=== PATIENT | female | born 1985 | race Caucasian/White ===

== ENCOUNTER 2021-12-19 11:32 | Emergency (ER) | payer OTHER, SELFPAY ==
--- NOTE | ~2021-12-19 | XR_ITS ---
EXAMINATION: XR ankle LT min 3V DATE: 12/19/2021 11:53 INDICATION: Left ankle inversion injury. Lateral ankle swelling. TECHNIQUE: 4 views of left ankle were obtained. COMPARISON: None. FINDINGS: Bone alignment is normal. No fracture. Joint spaces are well maintained. There is an enthes ophyte at plantar aspect of calcaneal tuberosity. There is lateral ankle soft tissue swelling. IMPRESSION: 1. No fracture. Reviewed, dictated and finalized at location A. IMPRESSION: 1. No fracture.
[2021-12-19 11:43] VITALS: BP 145/86; PULSE 86; RESP 14; TEMP 36.7; O2SAT 100
[2021-12-19 11:48] VITALS: BP 145/86; PULSE 86; RESP 14; TEMP 36.7; O2SAT 100
--- NOTE | 2021-12-19 11:55 | ED.LOWEXIN ---
HPI - Extremity Injury (Lower) General Chief Complaint: Extremity Injury, Lower Stated Complaint: Left Ankle Injury Time Seen by Provider: 12/19/21 11:56 Source: patient, RN notes reviewed and old records reviewed Mode of arrival: ambulatory Limitations: no limitations History of Present Illness HPI Narrative: 36 years old female who was walking outside and her ankle gave out and she twisted her left ankle on Friday. Patient has pain to the lateral left ankle with bruising along her lateral foot with some tenderness the lateral ankle and anterior to ankle bone. Patient has no obvious deformity with no tingling or numbness to left foot with brisk capillary refill of left toes. complaint: ankle injury Onset (ago): day(s) (3) Type of Injury: other (twisted) Place: street/outdoors Related Data Home Medications Medication Instructions Recorded Confirmed No Home Medications 12/19/21 12/19/21 Allergies Allergy/AdvReac Type Severity Reaction Status Date / Time No Known Allergies Allergy Verified 12/19/21 11:48 Review of Systems Review of Systems: CONSTITUTIONAL: Denies fever, chills, or sweats. EYES: Denies visual changes, redness, or discharge. ENT: Denies rhinorrhea, congestion, sore throat, or otalgia. CARDIOVASCULAR: Denies chest pain, palpitations, or edema. RESPIRATORY: Denies cough or dyspnea. GASTROINTESTINAL: Denies abdominal pain, nausea, vomiting, or diarrhea. GENITOURINARY: Denies dysuria or hematuria. SKIN: Denies rash or itching. Bruising along the left lateral foot MUSCULOSKELETAL: Denies back pain, positive lateral left ankle joint pain, or myalgia. NEUROLOGIC: Denies headache, numbness, or weakness. PSYCHIATRIC: Denies anxiety or depression. All systems reviewed & are unremarkable except as noted in HPI and below PMFSH Past Medical History Medical History (Updated 12/19/21 @ 12:25 by Josie Burleson NP) Fracture of arm fracture age 11 surgery to set Fracture of right great toe Family History Family History (Updated 05/03/16 @ 23:19 by DOCTOR UNKNOWN) Father Family history of diabetes mellitus in first degree relative Social History Social History (Updated 12/19/21 @ 12:22 by Josie Burleson NP) Smoking status: Never smoker Tobacco type: cigarettes Alcohol intake: current Substance use type: does not use Living arrangements: with family Gender identity (if verbalized by the patient): Female Comments At time of signature, agree with nursing past medical, surgical, social and family history. There is no relevant family history pertinent to the presenting complaint Exam Narrative: GENERAL: Well-appearing, well-nourished, and in no acute distress. HEAD: Normocephalic, atraumatic. EYES: PERRLA and EOMI. ENT: Nares clear, no rhinorrhea or epistaxis. Mucous membranes moist. NECK: Supple. no lymphadenopathy CHEST: Clear to auscultation. No respiratory distress.SAO2 100% on room air HEART: Regular rate and rhythm. No murmur heard. Normal peripheral pulses. ABDOMEN: Soft, nontender, nondistended, normal active bowel sounds. EXTREMITIES: Normal range of motion. No edema with exception to left lateral ankle with pain and to dorsal area anterior of ankle, circulation, sensation and mobility intact to left ankle. SKIN: Warm, dry, no rash. bruising lateral left foot NEURO: No focal deficits. Alert and oriented x3. Course Course Level of Care: Express Care Visit Vital Signs Vital signs: Vital Signs Temperature 36.7 C 12/19/21 11:43 Pulse Rate 86 12/19/21 11:43 Respiratory Rate 14 12/19/21 11:43 Blood Pressure 145/86 H 12/19/21 11:43 Pulse Oximetry 100 12/19/21 11:43 Temperature 36.7 C 12/19/21 11:48 Pulse Rate 86 12/19/21 11:48 Respiratory Rate 14 12/19/21 11:48 Blood Pressure 145/86 H 12/19/21 11:48 Pulse Oximetry 100 12/19/21 11:48 MDM - Extremity Injury (Lower) Differential Diagnosis Differential diagnosis: Likely ankle sprain
--- NOTE | 2021-12-19 12:03 | PC.NURSE ---
PT DECLINED ICE AND WHEELCHAIR FOR COMFORT
== END 2021-12-19 12:15 | disposition home or self-care (01) ==
PROVIDERS: Emergency Provider Registered Nurse
DX: S93.402A Sprain of unspecified ligament of left ankle, initial encounter (principal); S96.912A Strain of unspecified muscle and tendon at ankle and foot level, left foot, initial encounter; X50.9XXA Other and unspecified overexertion or strenuous movements or postures, initial encounter
CPT/HCPCS: 73610; 99203; G0463

== ENCOUNTER 2022-01-18 09:32 | Emergency (ER) | payer OTHER, SELFPAY ==
--- NOTE | ~2022-01-18 | XR_ITS ---
EXAMINATION: XR ankle LT min 3V DATE: 01/18/2022 09:52 INDICATION: Left ankle inversion injury and pain and swelling. TECHNIQUE: 4 views of left ankle were obtained. COMPARISON: None. FINDINGS: Bone alignment is normal. No fracture. Joint spaces are well-maintained. There is an enthes ophyte at plantar aspect of calcaneal tuberosity. There is ankle soft tissue swelling, lateral worse than medial. IMPRESSION: 1. No fracture. Reviewed, dictated and finalized at location A. IMPRESSION: 1. No fracture.
[2022-01-18 09:40] VITALS: BP 166/101; PULSE 95; RESP 18; TEMP 36.5; O2SAT 100
--- NOTE | 2022-01-18 09:51 | PC.NURSE ---
PT DECLINED ICE FOR COMFORT AND USED HER PERSONAL WALKING BOOT TO AMBULATE TO RADIOLOGY AND PT ROOM
--- NOTE | 2022-01-18 10:46 | ED.LOWEXIN ---
HPI - Extremity Injury (Lower) General Chief Complaint: Extremity Injury, Lower Stated Complaint: Left Ankle Injury Time Seen by Provider: 01/18/22 10:48 Source: patient, RN notes reviewed and old records reviewed Mode of arrival: ambulatory Limitations: no limitations History of Present Illness HPI Narrative: 36 year old female who presents to [facility] care with complaints of injury to her left ankle which occurred on Friday 6 days ago when she was at a wedding and wearing wedge shoes. She reports that she was walking on even concrete and she twisted her left ankle with foot rolling outward. She borrowed an orthopedic boot from a friend and has been wearing the boot to her left foot. Patient continues to have some swelling to medial and lateral ankle area with bruising noted to lower lateral leg and to lateral aspect of her foot. Patient reports that she has been taking Ibuprofen and using ice to her left ankle. She states that she was just getting over a sprained ankle when she reinjured it again. Blood pressure recheck 160/90 manually. complaint: ankle injury Onset (ago): day(s) (6) Injury: Left: ankle Type of Injury: inversion Place: street/outdoors Severity: moderate Severity scale (1-10): 3 Relieving factors: rest Exacerbating factors: weight bearing Context: fall Associated symptoms: swelling and able to partially bear weight Other symptoms: none Treatments prior to arrival: cold therapy, NSAIDS and other (wearing short orthopedic boot) Related Data Home Medications Medication Instructions Recorded Confirmed No Home Medications 12/19/21 01/18/22 Allergies Allergy/AdvReac Type Severity Reaction Status Date / Time No Known Allergies Allergy Verified 01/18/22 09:55 Review of Systems Review of Systems: CONSTITUTIONAL: Denies fever, chills, or sweats. EYES: Denies visual changes, redness, or discharge. ENT: Denies rhinorrhea, congestion, sore throat, or otalgia. CARDIOVASCULAR: Denies chest pain, palpitations, or edema. RESPIRATORY: Denies cough or dyspnea. GASTROINTESTINAL: Denies abdominal pain, nausea, vomiting, or diarrhea. GENITOURINARY: Denies dysuria or hematuria. SKIN: Denies rash or itching. MUSCULOSKELETAL: Denies back pain, positive for left ankle pain and swelling, or myalgia. NEUROLOGIC: Denies headache, numbness, or weakness. PSYCHIATRIC: Denies anxiety or depression. All systems reviewed & are unremarkable except as noted in HPI and below PMFSH Past Medical History Medical History Fracture of arm fracture age 11 surgery to set Fracture of right great toe Family History Family History Father Family history of diabetes mellitus in first degree relative Social History Social History Smoking status: Never smoker Tobacco type: cigarettes Alcohol intake: current Substance use type: does not use Gender identity (if verbalized by the patient): Female Comments At time of signature, agree with nursing past medical, surgical, social and family history. There is no relevant family history pertinent to the presenting complaint Exam Narrative: GENERAL: Well-appearing, well-nourished, and in no acute distress. HEAD: Normocephalic, atraumatic. EYES: PERRLA and EOMI. ENT: Nares clear, no rhinorrhea or epistaxis. Mucous membranes moist.TM's normal with good light reflex, throat pink with no lesions or exudates, no tonsil enlargement. NECK: Supple. no lymphadenopathy CHEST: Clear to auscultation. No respiratory distress.SAO2 100% on room air HEART: Regular rate and rhythm. No murmur heard. Normal peripheral pulses. ABDOMEN: Soft, nontender, nondistended, normal active bowel sounds. EXTREMITIES: Normal range of motion. No edema, Exception noted to left ankle which has minimal swelling to the medial aspect of left ankle and moderate denis
== END 2022-01-18 11:00 | disposition home or self-care (01) ==
PROVIDERS: Emergency Provider Registered Nurse
DX: S93.402A Sprain of unspecified ligament of left ankle, initial encounter (principal); S96.912A Strain of unspecified muscle and tendon at ankle and foot level, left foot, initial encounter; X50.9XXA Other and unspecified overexertion or strenuous movements or postures, initial encounter
CPT/HCPCS: 73610; 99213; G0463

== ENCOUNTER 2022-11-21 08:31 | Emergency (ER) | payer OTHER, SELFPAY ==
[2022-11-21 08:48] VITALS: BP 151/91; PULSE 105; RESP 20; TEMP 36.7; O2SAT 100
--- NOTE | 2022-11-21 08:59 | ED.URI ---
HPI - URI/Sore Throat General Chief Complaint: Upper Respiratory Infection Stated Complaint: strep test Source: patient and RN notes reviewed History of Present Illness HPI Narrative: 37-year-old female presents to urgent care with complaints of a sore throat started today. 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 Patient denies any fevers, chills, difficulty breathing, chest pain, shortness of breath, congestion, cough, headache, or ear pain. Patient has not had any medication for symptoms. Some parts of this dictation were generated by voice recognition software and may contain typographical and/or grammatical inaccuracies. Related Data Allergies Allergy/AdvReac Type Severity Reaction Status Date / Time No Known Allergies Allergy Verified 11/21/22 08:50 Review of Systems Review of Systems: CONSTITUTIONAL: Denies fever, chills, or sweats. EYES: Denies visual changes, redness, or discharge. ENT: Reports sore throat CARDIOVASCULAR: Denies chest pain, palpitations, or edema. RESPIRATORY: Denies cough or dyspnea. GASTROINTESTINAL: Denies abdominal pain, nausea, vomiting, or diarrhea. GENITOURINARY: Denies dysuria or hematuria. SKIN: Denies rash or itching. MUSCULOSKELETAL: Denies back pain, joint pain, or myalgia. NEUROLOGIC: Denies headache, numbness, or weakness. PMFSH Past Medical History Medical History Fracture of arm fracture age 11 surgery to set Fracture of right great toe Family History Family History Father Family history of diabetes mellitus in first degree relative Social History Social History Smoking status: Never smoker Tobacco type: cigarettes Alcohol intake: current Substance use type: does not use Living arrangements: with family Gender identity (if verbalized by the patient): Female Comments At the time of my signature, I reviewed and agree with the nursing past medical, surgical, social, and family history. There is no relevant family history pertinent to the patient complaint. Exam Narrative: GENERAL: This is a well-nourished, well-developed patient, in no apparent distress. HEAD: normocephalic, atraumatic. EYES: PERRL. Sclera clear/white. Vision is grossly intact. EARS: External ears normal, auditory canals clear and without drainage, TMs normal without perforation. Hearing grossly intact. NOSE: External nose normal with no obvious nasal discharge, nares without redness, no rhinorrhea. THROAT: Posterior pharynx erythemic. Tonsils 2+ bilaterally. No exudate noted. NECK: lymphadenopathy CARDIOVASCULAR: Regular rate and rhythm without murmurs, gallops, or rubs. RESPIRATORY: Clear to auscultation. Breath sounds equal bilaterally. No wheezes, rales, or rhonchi. GASTROINTESTINAL: Abdomen soft, non-tender, nondistended. Bowel sounds are active. No hepato-splenomegaly, or palpable masses. No guarding. SKIN: warm, intact with no suspicious lesions or rash, good texture and turgor. NEURO: awake, alert, and oriented to person, place and time. There were no obvious focal neurologic abnormalities. Course Course Level of Care: Express Care Visit Vital Signs Vital signs: Vital Signs Temperature 98.1 F 11/21/22 08:48 Pulse Rate 105 H 11/21/22 08:48 Respiratory Rate 20 11/21/22 08:48 Blood Pressure 151/91 H 11/21/22 08:48 Pulse Oximetry 100 11/21/22 08:48 Oxygen Delivery Room Air 11/21/22 08:48 Temperature 98.1 F 11/21/22 08:48 Pulse Rate 105 H 11/21/22 08:48 Respiratory Rate 20 11/21/22 08:48 Blood Pressure 151/91 H 11/21/22 08:48 Pulse Oximetry 100 11/21/22 08:48 Oxygen Delivery Room Air 11/21/22 08:48 Reviewed. Patient is informed that they may have pre-hypertension or hypertension based on a blood pressure reading
== END 2022-11-21 09:20 | disposition home or self-care (01) ==
PROVIDERS: Emergency Provider Nurse Practitioner Family; PCP Family Medicine
DX: J02.9 Acute pharyngitis, unspecified (principal)
CPT/HCPCS: 99213; G0463